=== PATIENT | female | born 1985 | race Hispanic/Latino ===

== ENCOUNTER 2018-12-27 09:20 | Emergency (ER) | payer OTHER, SELFPAY ==
[2018-12-27 09:28] VITALS: BP 126/78; PULSE 75; RESP 22; TEMP 37.1; O2SAT 100
--- NOTE | 2018-12-27 09:50 | ED.FEMALEGU ---
HPI - Female Genitourinary General Chief complaint: Urogenital-Female Stated complaint: cramping,pain in lower back,blood in urine Time Seen by Provider: 12/27/18 09:43 Source: patient Mode of arrival: ambulatory Limitations: no limitations History of Present Illness HPI Narrative: Patient is a 33-year-old female who presents with left flank pain. 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 She continues to have urinary frequency and dysuria she knows having left-sided flank pain. She feels nauseous she is vomiting pain does not radiate around to the front. MD Complaint: dysuria and UTI (left flank pain) Female Urogenital Radiation: L Flank Quality: Aching and Cramping Related Data Previous Rx's Medication Instructions Recorded ondansetron 4 mg PO Q6-8H PRN #10 tab 12/27/18 sulfamethoxazole-trimethoprim 1 tab PO BID 7 Days #14 tab 12/27/18 [Bactrim DS] Allergies Allergy/AdvReac Type Severity Reaction Status Date / Time No Known Drug Allergies Allergy Verified 12/27/18 09:31 Review of Systems Review of Systems GENERAL: Denies chills, fatigue, malaise, fever, sweats, travel HEENT: Denies sinus pain, ear pain, sore throat, difficulty swallowing, neck pain RESPIRATORY: Denies dyspnea, cough, wheezing, hemoptysis, sputum. CARDIOVASCULAR: Denies chest pain, palpitations, orthopnea, edema GASTROINTESTINAL: see HPI : See HPI MUSCULOSKELETAL: Denies weakness, joint pain, or bony pain SKIN: No rash, no erythema, no pruritus NEUROLOGIC: Denies weakness, dizziness, headache, numbness, change in speech, confusion PSYCHIATRIC: No concerning psychosocial issues. 12 point review of systems is negative except for those stated above and HPI PFSH Social History Smoking Status: Never smoker Social History Smoking Status: Never smoker Exam Initial Vital Signs Initial Vital Signs: Vital Signs Temperature 98.7 F 12/27/18 09:28 Pulse Rate 75 12/27/18 09:28 Respiratory Rate 22 12/27/18 09:28 Blood Pressure 126/78 12/27/18 09:28 Pulse Oximetry 100 12/27/18 09:28 GENERAL: Appears in pain actively vomiting can't get comfortable HEENT: Head atraumatic,EOMI, pupils reactive, face symmetric, moist mucous membranes CARDIOVASCULAR: Regular rate and rhythm without murmurs, rubs or gallops. RESPIRATORY: Breath sounds equal bilaterally, no wheezes rales or rhonchi. ABDOMEN: Soft, nontender. Normoactive bowel sounds all 4 quadrants. No guarding or rebound. : Left CVA tenderness EXTREMITIES: Normal range of motion, no clubbing or edema. Neurovascularly intact NEUROLOGICAL: Alert and oriented x4.Normal gait and speech. SKIN: Warm, dry, no laceration, no petechiae, no rashes or lesions. Course Orders Ordered: ED Orders 12/27/18 09:45 Complete Blood Count AUTO DIFF Stat Comprehensive Metabolic Panel Stat Lipase Stat Test Urine Stat Urinalysis and Microscopic Stat Urine Culture Stat Discontinued Medications Sodium Chloride (Normal Saline 0.9%) 1,000 mls @ 1,000 mls/hr IV CONT TRAY Last Infusion: 12/27/18 11:50 Dose: 0 mls/hr Admin: 12/27/18 10:36 Dose: 1,000 mls/hr Ketorolac Tromethamine (Toradol) 30 mg IV NOW ONE Stop: 12/27/18 09:58 Last Admin: 12/27/18 10:35 Dose: 30 mg Ondansetron HCl (Zofran) 4 mg IV NOW ONE Stop: 12/27/18 09:58 Last Admin: 12/27/18 10:36 Dose: 4 mg Pantoprazole Sodium (Protonix) 40 mg IV NOW ONE Stop: 12/27/18 09:58 Last Admin: 12/27/18 10:36 Dose: 40 mg Vital Signs - 8 hr 12/27/18 09:28 12/27/18 11:22 Temperature 98.7 F Pulse Rate 75 79 Respiratory Rate 22 15 Blood Pressure 126/78 Blood Pressure [Right Arm] 108/69 Pulse Oximetry 100 100 MDM - Female Genitourinary Lab Data Attestation: I reviewed the patient's lab results. Result diagrams: 12/27/18 09:45 12/27/18 09:45 Lab Results 12/27/18 12/27/18 12/27/18 Range/Units 09:45 09:45 09:45 WBC 9.9 (4.5-11.0) X10^3/uL RBC 4.74 (4.0-5.2) X10^6/uL Hgb 12.5 (12.0-16.0) g/dL Hct 37.8 (36-46) % MCV 79.7 L (80-100) fL MCH 26.4 (26-34) PG MCHC 33.2 (30-36) % RDW 14.8 (11.6-14.8) % Plt Count 300 (150-400) X10^3/uL Neut % (Auto) 81.1 H (50-75) % Lymph % (Auto) 13.5 L (25-40) % [place] % (Auto) 3.7 (3-14) % Eos % (Auto) 1.1 L (2-4) % Baso % (Auto) 0.6 (0-2) % Neut # (Auto) 8000 H (4637-7680) /uL Lymph # (Auto) 1300 (8350-6543) /uL [place] # (Auto) 400 (0-900) /uL Eos # (Auto) 100 (0-450) /uL Baso # (Auto) 100 (0-100) /uL Sodium (137-145) mmol/L Potassium (3.4-5.1) mmol/L Chloride (98-107) mmol/L Carbon Dioxide (22-32) mmol/L BUN (7-17) mg/dL Creatinine (0.52-1.04) mg/dL Estimated GFR (>60) mL/min BUN/Creatinine Ratio (6-22) Glucose (70-100) mg/dL Calcium (8.4-10.2) mg/dL Total Bilirubin (0.2-1.3) mg/dL AST (14-36) IU/L ALT (9-52) IU/L Alkaline Phosphatase (38-126) U/L Total Protein (6.3-8.2) g/dL Albumin (3.5-5.0) g/dL Globulin (1.7-4.1) g/dL Albumin/Globulin Ratio (1.0-2.8) Lipase (23-300) U/L Urine Color Yellow Urine Appearance Cloudy Urine pH 6.0 (4.5-8.0) Ur Specific [place] 1.025 (1.000-1.035) Urine Protein 1+ H (Negative) Urine Glucose (UA) Negative (Negative) g/dL Urine Ketones Negative (NEGATIVE) Urine Occult Blood 3+ H (Negative) Urine Nitrate Positive H (Negative) Urine Bilirubin Negative (NEGATIVE) Urine Urobilinogen 0.2 (0.2) E.U./dL Ur Leukocyte Esterase 1+ H (NEGATIVE) Urine RBC >100/hpf H (0-5/HPF) Urine WBC 30-100/hpf H (0-5/HPF) Ur Squamous Epith Cells 1-5 /hpf Urine Bacteria Many (>30) H (None) Urine Mucus 1+ H (Negative) Ur Culture Indicated? Specimen cultured Urine Test Negative (Negative) 12/27/18 Range/Units 09:45 WBC (4.5-11.0) X10^3/uL RBC (4.0-5.2) X10^6/uL Hgb (12.0-16.0) g/dL Hct (36-46) % MCV (80-100) fL MCH (26-34) PG MCHC (30-36) % RDW (11.6-14.8) % Plt Count (150-400) X10^3/uL Neut % (Auto) (50-75) % Lymph % (Auto) (25-40) % [place] % (Auto) (3-14) % Eos % (Auto) (2-4) % Baso % (Auto) (0-2) % Neut # (Auto) (9118-7735) /uL Lymph # (Auto) (9489-5535) /uL [place] # (Auto) (0-900) /uL Eos # (Auto) (0-450) /uL Baso # (Auto) (0-100) /uL Sodium 139 (137-145) mmol/L Potassium 3.9 (3.4-5.1) mmol/L Chloride 101 (98-107) mmol/L Carbon Dioxide 24 (22-32) mmol/L BUN 12 (7-17) mg/dL Creatinine 0.60 (0.52-1.04) mg/dL Estimated GFR > 60.0 (>60) mL/min BUN/Creatinine Ratio 20.0 (6-22) Glucose 136 H (70-100) mg/dL Calcium 9.5 (8.4-10.2) mg/dL Total Bilirubin 0.4 (0.2-1.3) mg/dL AST 19 (14-36) IU/L ALT 22 (9-52) IU/L Alkaline Phosphatase 83 (38-126) U/L Total Protein 7.8 (6.3-8.2) g/dL Albumin 4.4 (3.5-5.0) g/dL Globulin 3.4 (1.7-4.1) g/dL Albumin/Globulin Ratio 1.3 (1.0-2.8) Lipase 36 (23-300) U/L Urine Color Urine Appearance Urine pH (4.5-8.0) Ur Specific [place] (1.000-1.035) Urine Protein (Negative) Urine Glucose (UA) (Negative) g/dL Urine Ketones (NEGATIVE) Urine Occult Blood (Negative) Urine Nitrate (Negative) Urine Bilirubin (NEGATIVE) Urine Urobilinogen (0.2) E.U./dL Ur Leukocyte Esterase (NEGATIVE) Urine RBC (0-5/HPF) Urine WBC (0-5/HPF) Ur Squamous Epith Cells Urine Bacteria (None) Urine Mucus (Negative) Ur Culture Indicated? Urine Test (Negative) MDM Narrative Medical decision making narrative: I discussed with patient possibility of kidney stone. With patient. However at this time would recommend holding off CT scan and treating infection at this time. She is not septic. Pain is overall improved. She feels ready and able to go home Discharge Plan Departure Patient Disposition: Home Clinical Impression: UTI (urinary tract infection) Qualifiers: Urinary tract infection type: acute pyelonephritis Qualified Code(s): N10 - Acute pyelonephritis Discharge Date/Time: 12/27/18 11:51 Interventions: ED Discharge Assessment Last Done: 12/27/18 11:50 Instructions: DI for Kidney Infection Activity Restrictions/Additional Instructions: *You have been diagnosed with kidney infection *What to do: It is possible that you also have a kidney stone. At this time it is very obviously of a kidney infection. Let us treat for infection with antibiotics. It will take 2-3 days pre to start feeling better. *Continue to take medications as directed Bactrim 1 pill twice a day for 7 days Zofran 4 mg every 6-8 hours if needed for nausea or vomiting *Follow up with your primary care provider in 2-3 days *Return to ER if you should have increasing pain, persistent vomiting inability to tolerate fluids [or] any new, worsening or concerning symptoms Prescriptions: New sulfamethoxazole-trimethoprim [Bactrim DS] 800-160 mg tablet 1 tab PO BID 7 Days Qty: 14 RF: 0 ondansetron 4 mg tablet,disintegrating 4 mg PO Q6-8H PRN (Reason: nausea and vomiting) Qty: 10 RF: 0 [facility] [Provider Group]
[2018-12-27 10:01] LABS: Appearance Urine UA CLOUDY; Bilirubin Urine UA NEGATIVE (NEGATIVE); Color Urine UA YELLOW; Glucose Urine UA NEGATIVE (Negative); Ketones Urine UA NEGATIVE (NEGATIVE); Leukocyte Esterase Urine UA 1+ (NEGATIVE); Nitrite Urine UA POSITIVE (Negative); Occult Blood Urine UA 3+ (Negative); Protein Urine UA 1+ (Negative); Specific Gravity Urine UA 1.025 (1.000-1.035); Urobilinogen Urine UA 0.2 E.U./dL (0.2)
[2018-12-27 10:05] LABS: Pregnancy Test Urine Negative (Negative)
[2018-12-27 10:06] LABS: Add Manual Diff / Slide Review NO; Basophils Absolute Auto 100 /uL (0-100); Basophils Percent Auto 0.6 % (0-2); Eosinophils Absolute Auto 100 /uL (0-450); Eosinophils Percent Auto 1.1 % (2-4); Hematocrit 37.8 % (36-46); Hemoglobin 12.5 g/dL (12.0-16.0); Lymphocytes Absolute Auto 1300 /uL (1100-4500); Lymphocytes Percent Auto 13.5 % (25-40); Mean Corpuscular HGB Conc 33.2 % (30-36); Mean Corpuscular Hemoglobin 26.4 PG (26-34); Mean Corpuscular Volume 79.7 fL (80-100); Monocytes Absolute Auto 400 /uL (0-900); Monocytes Percent Auto 3.7 % (3-14); Neutrophils Absolute Auto 8000 /uL (1500-7000); Neutrophils Percent Auto 81.1 % (50-75); Platelet Count 300 X10^3/uL (150-400); Red Blood Cell Count 4.74 X10^6/uL (4.0-5.2); Red Cell Distribution Width 14.8 % (11.6-14.8); White Blood Cell Count 9.9 X10^3/uL (4.5-11.0)
[2018-12-27 10:10] LABS: Alanine Aminotransferase 22 IU/L (9-52); Albumin 4.4 g/dL (3.5-5.0); Albumin Globulin Ratio 1.3 (1.0-2.8); Alkaline Phosphatase 83 U/L (38-126); Aspartate Aminotransferase 19 IU/L (14-36); Bilirubin Total 0.4 mg/dL (0.2-1.3); Blood Urea Nitrogen 12 mg/dL (7-17); Calcium 9.5 mg/dL (8.4-10.2); Carbon Dioxide 24 mmol/L (22-32); Chloride 101 mmol/L (98-107); Estimated Glomerular Filt Rate > 60.0 mL/min (>60); Globulin 3.4 g/dL (1.7-4.1); Glucose 136 mg/dL (70-100); HEMOLYSIS < 15 (0-50); Lipase 36 U/L (23-300); Potassium 3.9 mmol/L (3.4-5.1); Sodium 139 mmol/L (137-145); Total Protein 7.8 g/dL (6.3-8.2)
[2018-12-27 10:17] LABS: Bacteria Urine Many (>30); Mucus Urine 1+ (Negative); RBC Urine >100/HPF (0-5/HPF); Squamous Epithelial Cell Urine 1-5 /HPF; WBC Urine 30-100/HPF (0-5/HPF)
[2018-12-27 10:18] LABS: Culture Indicated Urine Specimen Cultured
[2018-12-27] MEDS: KETOROLAC 60 MG/2 ML VIAL 30 MG IV (10:35)
[2018-12-27] MEDS: SODIUM CHLORIDE 0.9% 1,000 ML 1000 ML IV (10:36)
[2018-12-27] MEDS: ONDANSETRON 4 MG/2 ML INJ IV (10:36)
[2018-12-27] MEDS: PANTOPRAZOLE 40 MG VIAL IV (10:36)
[2018-12-27 11:22] VITALS: BP 108/69; PULSE 79; RESP 15; O2SAT 100
== END 2018-12-27 11:51 | disposition home or self-care (01) ==
PROVIDERS: Emergency Provider Emergency Medicine; PCP Nurse Practitioner Family
DX: N10 Acute pyelonephritis (principal)
CPT/HCPCS: 36591; 80053; 81001; 81025; 83690; 85025; 87077; 87086; 87186; 96361; 96374; 96375; 99283; 99284; C9113; J1885; J2405

== ENCOUNTER 2019-12-23 21:20 | Emergency (ER) | payer OTHER, SELFPAY ==
[2019-12-23 21:30] VITALS: BP 114/78; PULSE 90; RESP 20; TEMP 36.9; O2SAT 99
--- NOTE | 2019-12-23 21:40 | DI.RAD.S_ITS ---
PROCEDURE: XR CHEST 2V INDICATIONS: chest pain, cough, congestions that resolved. TECHNIQUE: 2 views of the chest were acquired. COMPARISON: None. FINDINGS: Surgical changes and devices: None. Lungs and pleura: Lungs are clear. No pleural effusions or pneumothorax. Mediastinum: Mediastinal contours are normal. Heart size is normal. Bones and chest wall: No suspicious bony abnormalities. Soft tissues appear unremarkable. IMPRESSION: No acute cardiopulmonary pathology. Dictated by: Archie Hartley M.D. on 12/23/2019 at 21:51 Approved by: Archie Hartley M.D. on 12/23/2019 at 21:52
--- NOTE | 2019-12-23 21:48 | ED.CHESTPAIN ---
HPI - Chest Pain General Chief Complaint: Upper Respiratory Symptoms Stated Complaint: chest pain Time Seen by Provider: 12/23/19 21:40 Source: patient Mode of arrival: Ambulatory Limitations: no limitations History of Present Illness HPI narrative: This is a 34-year-old female comes emergency department complaint of chest pain. Patient states symptoms started Saturday she had nasal congestion, little bit of sore throat cough a little bit of productive sputum. She states that she had shortness of breath chest pain at that time with her cough. Her congestion, sore throat in shortness of breath have all resolved. She still continues to have some chest pain. She states it feels like when you cough except she is not coughing anymore. Patient denies any fevers currently. She denies any nausea vomiting no other GI or urinary symptoms. She has not had any swelling in her lower extremities she has not had any calf pain. She states she takes metformin for PCOS, she denies any other medical issues. No prior surgeries. No tobacco, alcohol or illicit. She has a family history of a brother with some sort of cardiac issue but she is unclear, she states her parents do not have any known medical issues but that they are not likely to share that have with her. She did spend about 20 [address] back from [place] in the last week. Related Data Previous Rx's Medication Instructions Recorded ondansetron 4 mg PO Q6-8H PRN #10 tab 12/27/18 Allergies Allergy/AdvReac Type Severity Reaction Status Date / Time No Known Drug Allergies Allergy Verified 12/27/18 09:31 Review of Systems Review of Systems ROS Unobtainable: All systems reviewed & are unremarkable except as noted in HPI and below Patient History Medical History (Updated 12/23/19 @ 22:08 by Rosalva Linares DO) PCOS (polycystic ovarian syndrome) (Acute) Social History Smoking Status: Never smoker Smoking Status: Never smoker alcohol intake frequency: 0-2 drinks per day Substance Use Type: does not use Exam Narrative Exam Narrative: GENERAL: Alert and oriented x three, well-nourished female in mild distress. HEENT: Head normocephalic, atraumatic, EOMI, pupils reactive, face symmetric, moist mucous membranes NECK: Supple, full range of motion CARDIOVASCULAR: Regular rate and rhythm without murmurs, rubs or gallops. RESPIRATORY: Breath sounds equal bilaterally, no wheezes rales or rhonchi. ABDOMEN: Soft, nontender. Normoactive bowel sounds all 4 quadrants. No guarding or rebound, rigidity, no mass : No CVA tenderness EXTREMITIES: Normal range of motion, no clubbing or edema. Neurovascularly intact NEUROLOGICAL: Cranial nerves II through XII grossly intact. Moving all extremities SKIN: Warm, dry, no petechiae, no rashes or lesions. Initial Vital Signs Initial Vital Signs: Vital Signs Temperature 98.4 F 12/23/19 21:30 Pulse Rate 90 12/23/19 21:30 Respiratory Rate 20 12/23/19 21:30 Blood Pressure 114/78 12/23/19 21:30 Pulse Oximetry 99 12/23/19 21:30 Scores HEART Score Heart Score history: Slightly Suspicious Heart Score EKG: Normal Heart Score Age: < 45 years old Heart Score risk factors: 1-2 risk factors Heart Score troponin: < or = to normal limit Heart Score Total: 1 Wells' Criteria for PE Clinical signs and symptoms of DVT: No PE is #1 Dx or equally likely: No Heart rate > 100: No Immobilization at least 3 days or surg in previous 4 weeks: No History of PE or DVT: No Hemoptysis: No Malignancy w/Treatment within 6 months or palliative: No Wells' PE Score total: 0 Course Orders Ordered: ED Orders 12/23/19 21:40 XR chest 2V Stat 12/23/19 22:08 Complete Blood Count AUTO DIFF Stat Comprehensive Metabolic Panel Stat D Dimer Stat Lipase Stat Troponin & CK Cardiac Panel Stat Vital Signs Vital signs: Vital Signs - 8 hr 12/23/19 21:30 12/23/19 23:43 Temperature 98.4 F Pulse Rate 90 66 Respiratory Rate 20 14 Blood Pressure 114/78 101/64 Pulse Oximetry 99 99 MDM - Chest Pain Lab Data Attestation: I reviewed the patient's lab results. Result diagrams: 12/23/19 22:08 12/23/19 22:08 Labs: Lab Results 12/23/19 12/23/19 12/23/19 Range/Units 22:08 22:08 22:08 WBC 8.0 (4.5-11.0) X10^3/uL RBC 4.57 (4.0-5.2) X10^6/uL Hgb 13.1 (12.0-16.0) g/dL Hct 37.9 (36-46) % MCV 82.8 (80-100) fL MCH 28.6 (26-34) PG MCHC 34.5 (30-36) % RDW 14.6 (11.6-14.8) % Plt Count 275 (150-400) X10^3/uL Neut % (Auto) 64.5 (50-75) % Lymph % (Auto) 26.6 (25-40) % [place] % (Auto) 5.1 (3-14) % Eos % (Auto) 2.9 (2-4) % Baso % (Auto) 0.9 (0-2) % Neut # (Auto) 5100 (3354-0428) /uL Lymph # (Auto) 2100 (4245-1095) /uL [place] # (Auto) 400 (0-900) /uL Eos # (Auto) 200 (0-450) /uL Baso # (Auto) 100 (0-100) /uL D-Dimer < 200 (<230) ng/mL Sodium 136 L (137-145) mmol/L Potassium 3.4 (3.4-5.1) mmol/L Chloride 103 (98-107) mmol/L Carbon Dioxide 24 (22-32) mmol/L BUN 16 (7-17) mg/dL Creatinine 0.58 (0.52-1.04) mg/dL Estimated GFR > 60.0 (>60) mL/min BUN/Creatinine Ratio 27.6 H (6-22) Glucose 112 H (70-100) mg/dL Calcium 9.1 (8.4-10.2) mg/dL Total Bilirubin 0.3 (0.2-1.3) mg/dL AST 24 (14-36) IU/L ALT 19 (<35) IU/L Alkaline Phosphatase 89 (38-126) U/L Total Creatine Kinase 53 (30-135) U/L CK-MB (CK-2) TNP CK-MB (CK-2) Rel Index TNP Troponin I < 0.012 (0.01-0.034) ng/mL Total Protein 7.5 (6.3-8.2) g/dL Albumin 4.1 (3.5-5.0) g/dL Globulin 3.4 (1.7-4.1) g/dL Albumin/Globulin Ratio 1.2 (1.0-2.8) Lipase 63 (23-300) U/L Imaging Data Chest x-ray: Radiologist's Impression: [address] [address] XRay Report Signed Patient: Betsy Skelton [facility]#: [id number] : 1985Acct:[id number] Age/Sex: 34 / FDate of Service: 12/23/19 Loc: ED Accession Number: [id number] Procedure: XR chest 2V Ordering Provider: Rosalva Linares D.O. PROCEDURE: XR CHEST 2V INDICATIONS: chest pain, cough, congestions that resolved. TECHNIQUE: 2 views of the chest were acquired. COMPARISON: None. FINDINGS: Surgical changes and devices: None. Lungs and pleura: Lungs are clear. No pleural effusions or pneumothorax. Mediastinum: Mediastinal contours are normal. Heart size is normal. Bones and chest wall: No suspicious bony abnormalities. Soft tissues appear unremarkable. IMPRESSION: No acute cardiopulmonary pathology. Dictated by: Archie Hartley M.D. on 12/23/2019 at 21:51 Approved by: Archie Hartley M.D. on 12/23/2019 at 21:52 ECG Data Attestation: I personally reviewed and interpreted this ECG as follows: Prior ECG tracings: not available for review Interpretation: Sinus rhythm rate 80 CT 158, QRS 82 and QTC of 463. No ST elevation. No depression. Patient has to of inversion in 3 but not appreciated in 2 or AVF. [facility] Narrative Medical decision making narrative: Patient comes in with complaint of chest pain following a recent upper respiratory illness. Chest x-ray is negative for pneumonia. Her lab work does not show any acute changes. Trop is negative and ddimer. Discussed with patient I suspect this is secondary her recent infection. Plan for her to follow up with primary and to return if any new or worsening symptoms. Discharge Plan Departure Patient Disposition: Home Clinical Impression: Chest pain Qualifiers: Chest pain type: unspecified Qualified Code(s): R07.9 - Chest pain, unspecified Discharge Date/Time: 12/23/19 23:43 Instructions: DI for Atypical Chest Pain Activity Restrictions/Additional Instructions: Follow-up 1-2 weeks if you are not having any improvement of symptoms. Call your primary care to discuss with them. Continue home medications as prescribed. Return to the ER for fevers that are persistently elevated above 100.4, increasing worsening chest pain, shortness of breath, lightheadedness or passing out, persistent vomiting, swelling in your extremities, calf pain or redness or other new or concerning symptoms. Prescriptions: No Action ondansetron 4 mg tablet,disintegrating 4 mg PO Q6-8H PRN (Reason: nausea and vomiting) Qty: 10 RF: 0 Referrals: Sarah Schilling ARNP [Primary Care Provider] -
[2019-12-23 22:20] LABS: Add Manual Diff / Slide Review NO; Basophils Absolute Auto 100 /uL (0-100); Basophils Percent Auto 0.9 % (0-2); Eosinophils Absolute Auto 200 /uL (0-450); Eosinophils Percent Auto 2.9 % (2-4); Hematocrit 37.9 % (36-46); Hemoglobin 13.1 g/dL (12.0-16.0); Lymphocytes Absolute Auto 2100 /uL (1100-4500); Lymphocytes Percent Auto 26.6 % (25-40); Mean Corpuscular HGB Conc 34.5 % (30-36); Mean Corpuscular Hemoglobin 28.6 PG (26-34); Mean Corpuscular Volume 82.8 fL (80-100); Monocytes Absolute Auto 400 /uL (0-900); Monocytes Percent Auto 5.1 % (3-14); Neutrophils Absolute Auto 5100 /uL (1500-7000); Neutrophils Percent Auto 64.5 % (50-75); Platelet Count 275 X10^3/uL (150-400); Red Blood Cell Count 4.57 X10^6/uL (4.0-5.2); Red Cell Distribution Width 14.6 % (11.6-14.8)
[2019-12-23 22:40] LABS: D Dimer < 200 ng/mL (<230)
[2019-12-23 22:57] LABS: Alanine Aminotransferase 19 IU/L (<35); Albumin 4.1 g/dL (3.5-5.0); Albumin Globulin Ratio 1.2 (1.0-2.8); Alkaline Phosphatase 89 U/L (38-126); Aspartate Aminotransferase 24 IU/L (14-36); BUN Creatinine Ratio 27.6 (6-22); Bilirubin Total 0.3 mg/dL (0.2-1.3); Blood Urea Nitrogen 16 mg/dL (7-17); Calcium 9.1 mg/dL (8.4-10.2); Carbon Dioxide 24 mmol/L (22-32); Chloride 103 mmol/L (98-107); Creatine Kinase 53 U/L (30-135); Estimated Glomerular Filt Rate > 60.0 mL/min (>60); Globulin 3.4 g/dL (1.7-4.1); Glucose 112 mg/dL (70-100); HEMOLYSIS < 15 (0-50); Lipase 63 U/L (23-300); Potassium 3.4 mmol/L (3.4-5.1); Sodium 136 mmol/L (137-145); Total Protein 7.5 g/dL (6.3-8.2)
[2019-12-23 23:09] LABS: Troponin I < 0.012 ng/mL (0.01-0.034)
[2019-12-23 23:43] VITALS: BP 101/64; PULSE 66; RESP 14; O2SAT 99
== END 2019-12-23 23:43 | disposition home or self-care (01) ==
PROVIDERS: Emergency Provider Emergency Medicine; PCP Nurse Practitioner Family
DX: R07.9 Chest pain, unspecified (principal); R05 Cough; R06.02 Shortness of breath
CPT/HCPCS: 36415; 71046; 80053; 82550; 83690; 84484; 85025; 85379; 93005; 99284